=== PATIENT | male | born 1955 | race Asian ===

== ENCOUNTER 2019-11-26 06:30 | Day surgery (SDC) | payer OTHER ==
[~2019-11-26] VITALS: Ht 167.6 cm; Wt 86.6 kg
[2019-11-26] VITALS (19 sets, daily range): BP systolic 86–150; BP diastolic 58–101
[~2019-11-26 06:30] MED LIST: AMYL1CAP63 PO; DILT30TA38 PO; FERR-63 PO; MULT-1203 PO; PANT40TA PO; [UNRECOGNIZED DRUG - CODE] PO
[2019-11-26] MEDS ORDERED: SODIUM CHLORIDE 0.9% 1000ML 1,000 ML IV ONE (06:31)
[2019-11-26] MEDS ORDERED: FENTANYL CITRATE PF 50 MCG/1 ML 2ML VIAL ONE ×2 (07:43→08:22)
[2019-11-26] MEDS ORDERED: ONDANSETRON HCL 4 MG/2 ML VIAL ONE (07:44)
[2019-11-26] MEDS ORDERED: LIDOCAINE HCL 2% 20ML ONE (07:44)
[2019-11-26] MEDS ORDERED: MIDAZOLAM HCL 1 MG/ML 2ML VIAL ONE (07:44)
[2019-11-26] MEDS ORDERED: PROPOFOL 10 MG/ML 20ML VIAL IV ONE (07:44)
[2019-11-26] MEDS ORDERED: SUCCINYLCHOLINE CHLORIDE 20 MG/ML 10 ML VIAL ONE (07:44)
[2019-11-26] MEDS ORDERED: IOHEXOL-350 50ML VIAL IV ONE (07:58)
[2019-11-26] MEDS ORDERED: EPHEDRINE SULFATE 50 MG/ML AMPULE ONE (08:33)
[2019-11-26] MEDS ORDERED: ZOSYN 3.375GM+NS 50ML 50 ML IV ONE (08:38)
[2019-11-26] MEDS ORDERED: INDOMETHACIN 50 MG SUPP.RECT RC SCH (09:00)
[2019-11-26] MEDS ORDERED: PHENYLEPHRINE HCL 10 MG/ML 1ML VIAL IV ONE (09:01)
== END 2019-11-26 12:45 | disposition home or self-care (01) ==
LOC: ENDO 06:30 → DAH 06:30 → ENDO 12:45
PROVIDERS: ATTEND Internal Medicine Gastroenterology
DX: K86.2 Cyst of pancreas (principal); K31.89 Other diseases of stomach and duodenum; I10 Essential (primary) hypertension; Z90.49 Acquired absence of other specified parts of digestive tract; K83.1 Obstruction of bile duct; K91.89 Other postprocedural complications and disorders of digestive system; K26.0 Acute duodenal ulcer with hemorrhage; D64.9 Anemia, unspecified; E78.2 Mixed hyperlipidemia; Z11.59 Encounter for screening for other viral diseases
CPT/HCPCS: 43240; 43245; 43264; 43275; 74330; A4215; A4216; A4221; A4222; A4223; A4606; A4657 ×2; A4663; C1726; C1769; C1773; C1877; C9803; J0330; J2250; J2370; J2405; J2543; J2704; J3010 ×2; J3490 ×2; J7030; Q9967; U0003; 43253

== ENCOUNTER 2019-11-29 06:08 | Day surgery (SDC) | payer OTHER ==
[~2019-11-29] VITALS: Ht 167.6 cm; Wt 86.6 kg
[2019-11-29] VITALS (16 sets, daily range): BP systolic 113–138; BP diastolic 80–98
[2019-11-29] MEDS ORDERED: SODIUM CHLORIDE 0.9% 1000ML 1,000 ML IV ONE (06:31)
[2019-11-29] MEDS ORDERED: PROPOFOL 10 MG/ML 20ML VIAL IV ONE (07:59)
[2019-11-29] MEDS ORDERED: LIDOCAINE HCL 1% 20 ML VIAL ONE (07:59)
[2019-11-29] MEDS ORDERED: GLYCOPYRROLATE 0.2 MG/ML 5 ML VIAL ONE (08:00)
[2019-11-29] MEDS ORDERED: ESMOLOL HCL 10 MG/ML 10 ML VIAL ONE (08:13)
[2019-11-29] MEDS ORDERED: CLINDAMYCIN 600 MG/D5% WATER 50 ML IV ONE (08:15)
[2019-11-29] MEDS ORDERED: ZOSYN 3.375GM+NS 50ML 50 ML IV ONE (08:15)
[2019-11-29] MEDS ORDERED: PHENYLEPHRINE HCL 10 MG/ML 1ML VIAL IV ONE (08:38)
[2019-11-29] MEDS ORDERED: METOPROLOL TARTRATE 1 MG/ML 5ML VIAL IV ONE (09:25)
[2019-11-29] MEDS ORDERED: MEPERIDINE-PF 25 MG/ML SYG ONE (09:36)
== END 2019-11-29 11:30 | disposition home or self-care (01) ==
LOC: SUH 06:08 → DAH 06:08 → SUH 11:30
PROVIDERS: ATTEND Internal Medicine
DX: K91.89 Other postprocedural complications and disorders of digestive system (principal); K86.3 Pseudocyst of pancreas; K83.1 Obstruction of bile duct; I10 Essential (primary) hypertension; E78.2 Mixed hyperlipidemia; Z79.899 Other long term (current) drug therapy; Z90.49 Acquired absence of other specified parts of digestive tract; Z98.890 Other specified postprocedural states; Z80.0 Family history of malignant neoplasm of digestive organs; Y83.8 Other surgical procedures as the cause of abnormal reaction of the patient, or of later complication, without mention of misadventure at the time of the procedure
CPT/HCPCS: 43235; 48999; A4215; A4221; A4222; A4223; A4606; A4663; J2175; J2370; J2543; J2704; J3490 ×4; J7030 ×2

== ENCOUNTER 2019-12-02 06:28 | Day surgery (SDC) | payer OTHER ==
[2019-12-02] VITALS (16 sets, daily range): BP systolic 104–150; BP diastolic 59–99
[~2019-12-02] VITALS: Ht 167.6 cm; Wt 86.6 kg
[2019-12-02] MEDS ORDERED: LIDOCAINE PF 2% 5ML ABBOJECT ONE (06:54)
[2019-12-02] MEDS ORDERED: SUCCINYLCHOLINE CHLORIDE 20 MG/ML 10 ML VIAL ONE ×2 (06:54→06:59)
[2019-12-02] MEDS ORDERED: ONDANSETRON HCL 4 MG/2 ML VIAL ONE (06:55)
[2019-12-02] MEDS ORDERED: MIDAZOLAM HCL 1 MG/ML 2ML VIAL ONE (06:55)
[2019-12-02] MEDS ORDERED: NEOSTIGMINE 5MG/5ML SYR IV ONE (06:55)
[2019-12-02] MEDS ORDERED: PROPOFOL 10 MG/ML 20ML VIAL IV ONE (06:55)
[2019-12-02] MEDS ORDERED: GLYCOPYRROLATE 1 MG/5 ML SYRINGE ONE (06:55)
[2019-12-02] MEDS ORDERED: DEXAMETHASONE SOD PHOSPHATE 10MG/ML 1ML VIAL ONE (06:55)
[2019-12-02] MEDS ORDERED: FENTANYL CITRATE PF 50 MCG/1 ML 2ML VIAL ONE (06:56)
[2019-12-02] MEDS ORDERED: ROCURONIUM 10MG/1ML SYR 10 MG/ML ML ONE (06:56)
[2019-12-02] MEDS ORDERED: ESMOLOL HCL 10 MG/ML 10 ML VIAL ONE (06:57)
[2019-12-02] MEDS ORDERED: CLINDAMYCIN 600 MG/D5% WATER 50 ML IV ONE (07:12)
[2019-12-02] MEDS ORDERED: SODIUM CHLORIDE 0.9% 1000ML 1,000 ML IV ONE (07:12)
[2019-12-02] MEDS ORDERED: ZOSYN 3.375GM+NS 50ML 50 ML IV ONE (07:12)
[2019-12-02] MEDS ORDERED: PHENYLEPHRINE HCL 10 MG/ML 1ML VIAL IV ONE (09:03)
== END 2019-12-02 11:15 | disposition home or self-care (01) ==
LOC: DAH 06:28 → ENDO 06:28
PROVIDERS: ATTEND Internal Medicine
DX: R13.10 Dysphagia, unspecified (principal); K92.2 Gastrointestinal hemorrhage, unspecified; K44.9 Diaphragmatic hernia without obstruction or gangrene; K29.50 Unspecified chronic gastritis without bleeding; K22.8 Other specified diseases of esophagus; K85.92 Acute pancreatitis with infected necrosis, unspecified; I10 Essential (primary) hypertension; E66.9 Obesity, unspecified; E78.5 Hyperlipidemia, unspecified; D64.9 Anemia, unspecified; Z79.899 Other long term (current) drug therapy; Z90.49 Acquired absence of other specified parts of digestive tract; Z72.89 Other problems related to lifestyle; Z87.39 Personal history of other diseases of the musculoskeletal system and connective tissue; Z68.31 Body mass index [BMI] 31.0-31.9, adult; Z87.19 Personal history of other diseases of the digestive system
CPT/HCPCS: 43239; A4215; A4216; A4221; A4222; A4223; A4606; A4657 ×2; A4663; J0330 ×2; J1100; J2001; J2250; J2370; J2405; J2543; J2704; J2710; J3010; J3490 ×3; J7030 ×2; 43235; G9654

== ENCOUNTER → 2019-12-19 | Outpatient (CLI) | payer OTHER | END | disposition home or self-care (01) | LOC: CANPRESDC → DAH 10:00 → EDSTATUS 12-24 07:30 | PROVIDERS: ATTEND Internal Medicine | DX: K85.92 Acute pancreatitis with infected necrosis, unspecified (principal); R10.9 Unspecified abdominal pain; Z20.828 Contact with and (suspected) exposure to other viral communicable diseases; Z53.8 Procedure and treatment not carried out for other reasons | CPT/HCPCS: C9803; U0003 ==